=== PATIENT | male | born 1965 ===

== ENCOUNTER 2017-06-06 10:00 | Emergency (ER) | payer MEDICAID, OTHER ==
[2017-06-06 10:00] VITALS: BMI 22.1
[2017-06-06 10:11] VITALS: BP 122/98; RESP 18; TEMP 97.8; O2SAT 98
--- NOTE | 2017-06-06 10:43 | ED PDOC ---
HPI: Chest Pain Time Seen by Provider: 06/06/17 10:13 Chief Complaint (Nursing): Chest Pain Chief Complaint (Provider): Chest pain History Per: Patient History/Exam Limitations: no limitations Onset/Duration Of Symptoms: Hrs (prior to arrival ) Current Symptoms Are (Timing): Still Present Additional Complaint(s): Shawn Bernstein is a 52 year old male presenting to the ED for an evaluation of chest pain occurring prior to arrival. The patient admits to IV heroin use approximately 4 hours prior to arrival. He then developed chest pain prompting his ED visit today. The patient denies shortness of breath or any other drug use. PMD: None provided Past Medical History Reviewed: Historical Data, Nursing Documentation, Vital Signs Vital Signs: Last Vital Signs Temp 97.8 F 06/06/17 10:09 Pulse 75 06/06/17 10:46 Resp 18 06/06/17 10:09 BP 122/98 H 06/06/17 10:46 Pulse Ox 98 06/06/17 10:48 - Medical History PMH: Asthma Denies: Chronic Kidney Disease - Family History Family History: States: Unknown Family Hx - Social History Drugs: Other (heroin) - Immunization History Hx Tetanus Toxoid Vaccination: No Hx Influenza Vaccination: No Hx Pneumococcal Vaccination: No - Home Medications Home Medications: Ambulatory Orders Medication Instructions Recorded No Known Home Med 05/26/17 - Allergies Allergies/Adverse Reactions: Allergies Allergy/AdvReac Type Severity Reaction Status Date / Time Penicillins Allergy Verified 05/26/17 12:40 Review of Systems ROS Statement: Except As Marked, All Systems Reviewed And Found Negative Constitutional: Negative for: Other (no other drug use ) Cardiovascular: Positive for: Chest Pain Respiratory: Negative for: Shortness of Breath Physical Exam - Reviewed Nursing Documentation Reviewed: Yes Vital Signs Reviewed: Yes - Physical Exam Appears: Positive for: Non-toxic, No Acute Distress Head Exam: Positive for: ATRAUMATIC, NORMOCEPHALIC Skin: Positive for: Normal Color, Warm, Dry Eye Exam: Positive for: Normal appearance, EOMI ENT: Positive for: Normal ENT Inspection Neck: Positive for: Normal, Painless ROM Cardiovascular/Chest: Positive for: Regular Rate, Rhythm, Chest Non Tender Respiratory: Positive for: Normal Breath Sounds. Negative for: Respiratory Distress Gastrointestinal/Abdominal: Positive for: Normal Exam, Soft. Negative for: Tenderness Back: Positive for: Normal Inspection Extremity: Positive for: Normal ROM. Negative for: Deformity Neurologic/Psych: Positive for: Alert, Oriented (x3). Negative for: Motor/ Sensory Deficits - ECG O2 Sat by Pulse Oximetry: 98 (RA) Pulse Ox Interpretation: Normal Medical Decision Making Medical Decision Making: Time: 10:13 Impression: Chest pain s/p IV drug abuse Plan: * ED EKG * Alcohol Serum * Drug Screen, urine * Troponin I * CBC (with differential) * [RAD] Chest Portable * Reevaluation 10:46 Patient wishes to leave against medical advice. Patient advised of risks including cardiac arrythmia and possible . Patient advised not to do heroin anymore and discussed to follow up with [facility] or [facility]. Patient agreed to treatment plan. Scribe Attestation: Documented by Lorraine Schmidt, acting as a scribe for Ryan Vázquez MD. Provider Scribe Attestation: All medical record entries made by the Scribe were at my direction and personally dictated by me. I have reviewed the chart and agree that the record accurately reflects my personal performance of the history, physical exam, medical decision making, and the department course for this patient. I have also personally directed, reviewed, and agree with the discharge instructions and disposition. Disposition - Clinical Impression Clinical Impression: Chest pain, Narcotic abuse - Patient ED Disposition Is Patient to be Admitted: No - Disposition Referrals: [facility] [Outside] Disposition: Against Medical Advice Disposition Time: 10:50 Condition: FAIR Instructions: Chest Pain (ED), Narcotic Abuse (ED) Forms: [employer] (Swazi)
[2017-06-06 10:52] VITALS: PULSE 75
--- NOTE | 2017-06-06 12:41 | CARD ---
APPROVED REPORT EKG Measurement Heart [id number] SD 170P73 [id number] <Conclusion> Normal sinus rhythm with sinus arrhythmia Septal infarct, age undetermined Abnormal ECG
--- NOTE | 2017-06-06 14:49 | RAD ---
HISTORY: cough COMPARISON: No prior. FINDINGS: LUNGS: No active pulmonary disease. PLEURA: No significant pleural effusion identified, no pneumothorax apparent. CARDIOVASCULAR: Normal. OSSEOUS STRUCTURES: No significant abnormalities. VISUALIZED UPPER ABDOMEN: Normal. OTHER FINDINGS: None. IMPRESSION: No active disease.
== END 2017-06-06 11:00 | disposition home or self-care (01) ==
LOC: H.ER 10:00
DX: R07.89 Other chest pain (principal); F11.10 Opioid abuse, uncomplicated; J45.909 Unspecified asthma, uncomplicated; Z88.0 Allergy status to penicillin

== ENCOUNTER 2017-06-06 11:45 | Emergency (ER) | payer SELFPAY ==
[2017-06-06 11:45] VITALS: BMI 22.1
[2017-06-06 11:52] VITALS: TEMP 97.9
--- NOTE | 2017-06-06 12:38 | CARD ---
APPROVED REPORT EKG Measurement Heart [id number] CT 172P67 [id number] <Conclusion> Normal sinus rhythm Normal ECG
--- NOTE | 2017-06-06 12:51 | ED PDOC ---
HPI: Chest Pain Time Seen by Provider: 06/06/17 11:59 Chief Complaint (Nursing): Chest Pain Chief Complaint (Provider): Chest Pain History Per: Patient History/Exam Limitations: no limitations Onset/Duration Of Symptoms: Hrs (prior to arrival ) Current Symptoms Are (Timing): Still Present Additional Complaint(s): Shawn Bernstein is a 52 year old male presenting to the ED for an evaluation of chest pain occurring prior to arrival. The patient visited the ER 2 hours prior to arrival for the same symptoms occurring s/p IV heroin abuse and left against medical advice. The patient states he entered his car to go home and then developed chest pain again prompting his second ED visit today. PMD: None provided Past Medical History Reviewed: Historical Data, Nursing Documentation, Vital Signs Vital Signs: Last Vital Signs Temp 97.9 F 06/06/17 11:49 Pulse 75 06/06/17 15:05 Resp 14 06/06/17 15:05 BP 126/75 06/06/17 15:05 Pulse Ox 98 06/06/17 17:06 - Medical History PMH: Asthma Denies: Chronic Kidney Disease - Family History Family History: States: Unknown Family Hx - Social History Drugs: Other (heroin) - Immunization History Hx Tetanus Toxoid Vaccination: No Hx Influenza Vaccination: No Hx Pneumococcal Vaccination: No - Home Medications Home Medications: Ambulatory Orders Medication Instructions Recorded Ibuprofen [Motrin Tab] 800 mg PO TID #20 tab 06/07/17 - Allergies Allergies/Adverse Reactions: Allergies Allergy/AdvReac Type Severity Reaction Status Date / Time Penicillins Allergy Verified 06/07/17 13:33 Review of Systems ROS Statement: Except As Marked, All Systems Reviewed And Found Negative Constitutional: Negative for: Fever Cardiovascular: Positive for: Chest Pain Physical Exam - Reviewed Nursing Documentation Reviewed: Yes Vital Signs Reviewed: Yes - Physical Exam Appears: Positive for: Non-toxic, No Acute Distress Head Exam: Positive for: ATRAUMATIC, NORMOCEPHALIC Skin: Positive for: Normal Color, Warm, Dry Eye Exam: Positive for: Normal appearance, EOMI ENT: Positive for: Normal ENT Inspection Neck: Positive for: Normal, Painless ROM Cardiovascular/Chest: Positive for: Chest Non Tender, Other (Split S2 heard ) Respiratory: Positive for: Normal Breath Sounds. Negative for: Respiratory Distress Gastrointestinal/Abdominal: Positive for: Normal Exam, Soft. Negative for: Tenderness Back: Positive for: Normal Inspection Extremity: Positive for: Normal ROM. Negative for: Deformity Neurologic/Psych: Positive for: Alert, Oriented (x3). Negative for: Motor/ Sensory Deficits - Laboratory Results Result Diagrams: 06/06/17 13:20 06/06/17 13:20 - ECG O2 Sat by Pulse Oximetry: 98 (RA) Pulse Ox Interpretation: Normal Medical Decision Making Medical Decision Making: Time: 11:59 Impression: Chest Pain Plan: * ED EKG * CMP * Drug Screen, Urine * TSH * Troponin I * CBC (with differential) * D Dimer [COAG] * PTT * Prothrombin Time * Urinalysis * [RAD] Chest Portable * Reevaluation This patient is choosing to leave against medical advice. I have personally explained to the pt that choosing to do so may result in permanent bodily harm or . I have discussed at great length that without further evaluation and monitoring there may be unforeseen circumstances and/or deterioration causing permanent bodily harm or as a result of their choice. The pt verbalized these risks back to the physician in laymans terms. The pt is alert, oriented, and shows the mental capacity to make clear decisions regarding the pts health care at this time. The pt continues to wish to leave against medical advice. In light of the pts decision to leave AMA, follow-up has been arranged and the pt is aware of the importance of following up as instructed. The pt has been advised that they should return to the ED immediately if they change their mind at any time, or if their condition begins to change or worsen in any way. Scribe Attestation: Documented by Lorraine Schmidt and Tiffanie Mejía, acting as a scribe for Deisy Mccarty MD. Provider Scribe Attestation: All medical record entries made by the Scribe were at my direction and personally dictated by me. I have reviewed the chart and agree that the record accurately reflects my personal performance of the history, physical exam, medical decision making, and the department course for this patient. I have also personally directed, reviewed, and agree with the discharge instructions and disposition. Disposition - Clinical Impression Clinical Impression: Chest pain - Patient ED Disposition Is Patient to be Admitted: No - Disposition Referrals: FAMILY PROVIDER,NO [Primary Care Provider] - Disposition: Against Medical Advice Disposition Time: 16:25 Condition: UNKNOWN Forms: [facility] (Chadian) - POA Present On Arrival: None
[2017-06-06 13:38] LABS: BASO # 0.1 K/uL (0.0-0.2); BASO % 0.9 % (0.0-2.0); EOS # 0.5 K/uL (0.0-0.7); EOS % 3.2 % (0.0-4.0); HEMATOCRIT 45.8 % (35.0-51.0); LYMPH # 2.8 K/uL (1.0-4.3); LYMPH % 19.8 % (20.0-40.0); MEAN CELL VOLUME 88.3 fl (80.0-94.0); MEAN CORPUSCULAR HEMOGLOBIN 28.8 pg (27.0-31.0); MEAN CORPUSCULAR HGB CONC 32.7 g/dL (33.0-37.0); MEAN PLATELET VOLUME 7.7 fl (7.2-11.7); MONO # 0.6 K/uL (0.0-0.8); MONO % 4.3 % (0.0-10.0); NEUT # 10.2 K/uL (1.8-7.0); NEUT % 71.8 % (50.0-75.0); NRBC % 0.1 % (0.0-0.0); RED CELL DISTRIBUTION WIDTH 13.8 % (11.5-14.5); WHITE BLOOD COUNT 14.2 K/uL (4.8-10.8)
[2017-06-06 13:39] LABS: CHLORIDE 109 mmol/L (98-107)
[2017-06-06 14:11] LABS: THYROID STIMULATING HORMONE 0.96 mIU/ML (0.46-4.68)
[2017-06-06 14:37] LABS: ALB/GLOB RATIO 1.2 (1.0-2.1); ALKALINE PHOSPHATASE 110 U/L (38-126); ALT/SGPT 35 U/L (21-72); AST/SGOT 25 U/L (17-59); BILIRUBIN,TOTAL 0.3 mg/dl (0.2-1.3); BLOOD UREA NITROGEN 18 mg/dl (9-20); CALCIUM 9.3 mg/dL (8.4-10.2); CARBON DIOXIDE 23 mmol/L (22-30); GFR AFRICAN-AMERICAN > 60; GLUCOSE,RANDOM 101 mg/dL (75-110); POTASSIUM 4.2 MMOL/L (3.6-5.0); SODIUM 143 mmol/l (132-148)
[2017-06-06] MEDS ORDERED: Sodium Chloride 0.9% 100 ML ONE (15:45)
[2017-06-06] MEDS ORDERED: Iodixanol 320 MG/ML 100 ML BOTTLE IV ONE (15:45)
[2017-06-06 16:44] VITALS: PULSE 75
[2017-06-06 16:45] LABS: RBC URINE 1 /hpf (0-3); URINE BILIRUBIN NEGATIVE (NEGATIVE); URINE BLOOD MODERATE (NEGATIVE); URINE COLOR STRAW (YELLOW); URINE GLUCOSE (UA) NEG (Normal); URINE KETONE NEGATIVE (NEGATIVE); URINE LEUKOCYTE ESTERASE NEG Leu/uL (Negative); URINE PROTEIN NEGATIVE (NEGATIVE); URINE UROBILINOGEN 0.2-1.0 mg/dL (0.2-1.0); WBC URINE < 1 /hpf (0-5)
[2017-06-06 16:48] VITALS: BP 126/75; RESP 14
[2017-06-06 16:54] LABS: URINE BACTERIA RARE (<OCC)
[2017-06-06 17:07] VITALS: O2SAT 98
== END 2017-06-06 16:33 | disposition short-term general hospital (02) ==
LOC: H.ER 11:45 → SUPCPDRO 11:45 → H.ER 16:33
DX: R07.9 Chest pain, unspecified (principal); J45.909 Unspecified asthma, uncomplicated; Z88.0 Allergy status to penicillin
CPT/HCPCS: 80053; 81003; 84443; 84484; 85025; 85378; 85610; 85730; 93005; 99285; G0480; Q9967

== ENCOUNTER 2018-02-01 12:40 | Emergency (ER) | payer MEDICAID, OTHER ==
[2018-02-01 12:41] VITALS: BMI 23.4
[2018-02-01 12:44] VITALS: TEMP 98.3; O2SAT 98
--- NOTE | 2018-02-01 13:13 | ED PDOC ---
HPI: General Adult Time Seen by Provider: 02/01/18 13:11 Chief Complaint (Nursing): Seizure Chief Complaint (Provider): cocaine withdrawal History Per: Patient (52 y/o male here with vomiting/diarrhea after stopping cocaine 3 days ago. STates symptoms are typical for him after cocaine use. Feels as if he is improving and requests vegetarian meal.) Past Medical History Reviewed: Historical Data, Nursing Documentation, Vital Signs Vital Signs: Last Vital Signs Temp 98.3 F 02/01/18 12:44 Pulse 96 H 02/01/18 12:44 Resp 19 02/01/18 12:44 BP 142/85 02/01/18 12:44 Pulse Ox 98 02/01/18 13:26 - Medical History PMH: Asthma, HTN Denies: HIV, Chronic Kidney Disease, Seizures, Sexually Transmitted Disease - Family History Family History: States: Unknown Family Hx - Immunization History Hx Tetanus Toxoid Vaccination: No Hx Influenza Vaccination: No Hx Pneumococcal Vaccination: No - Home Medications Home Medications: Ambulatory Orders Medication Instructions Recorded Ondansetron ODT [Zofran ODT] 4 mg PO Q8 PRN #2 odt 02/01/18 - Allergies Allergies/Adverse Reactions: Allergies Allergy/AdvReac Type Severity Reaction Status Date / Time Penicillins Allergy SHORTNESS Verified 01/06/18 01:10 OF BREATH Review of Systems ROS Statement: Except As Marked, All Systems Reviewed And Found Negative Physical Exam - Reviewed Nursing Documentation Reviewed: Yes Vital Signs Reviewed: Yes - Physical Exam Appears: Positive for: Well, Non-toxic, No Acute Distress Head Exam: Positive for: ATRAUMATIC, NORMAL INSPECTION, NORMOCEPHALIC Skin: Positive for: Normal Color, Warm, DRY Eye Exam: Positive for: EOMI, Normal appearance, PERRL ENT: Positive for: Normal ENT Inspection Neck: Positive for: Normal, Painless ROM Cardiovascular/Chest: Positive for: Regular Rate, Rhythm Respiratory: Positive for: CNT, Normal Breath Sounds Gastrointestinal/Abdominal: Positive for: Normal Exam, Soft Back: Positive for: Normal Inspection Extremity: Positive for: Normal ROM Neurologic/Psych: Positive for: Alert, Oriented - ECG O2 Sat by Pulse Oximetry: 98 - Progress ED Course And Treament: zofran 4 mg odt Disposition - Clinical Impression Clinical Impression: Cocaine withdrawal - Patient ED Disposition Is Patient to be Admitted: No - Disposition Referrals: FAMILY PROVIDER,NO [Primary Care Provider] - Disposition: Routine/Home Disposition Time: 15:12 Condition: FAIR Prescriptions: Ondansetron ODT [Zofran ODT] 4 mg PO Q8 PRN #2 odt PRN Reason: Nausea/Vomiting Instructions: Cocaine Use Disorder Forms: [facility] [employer] [facility] (Wolof)
[2018-02-01 16:34] VITALS: BP 138/80; PULSE 90; RESP 18
== END 2018-02-01 16:34 | disposition home or self-care (01) ==
LOC: SUPCPDRO 12:40 → H.ER 12:40
DX: F14.23 Cocaine dependence with withdrawal (principal); I10 Essential (primary) hypertension; J45.909 Unspecified asthma, uncomplicated; R56.9 Unspecified convulsions; Z88.0 Allergy status to penicillin

== ENCOUNTER 2018-02-01 19:07 | Emergency (ER) | payer OTHER ==
[2018-02-01 19:07] VITALS: BMI 23.4
[2018-02-01 19:18] VITALS: BP 161/111; PULSE 117; RESP 18; TEMP 97.4; O2SAT 96
[2018-02-01 19:50] LABS: BASO # 0.1 K/uL (0.0-0.2); EOS # 0.1 K/uL (0.0-0.7); EOS % 1.7 % (0.0-4.0); HEMOGLOBIN 14.1 g/dL (12.0-18.0); LYMPH # 2.7 K/uL (1.0-4.3); LYMPH % 37.6 % (20.0-40.0); MEAN CORPUSCULAR HEMOGLOBIN 30.7 pg (27.0-31.0); MEAN CORPUSCULAR HGB CONC 34.1 g/dL (33.0-37.0); MEAN PLATELET VOLUME 7.3 fl (7.2-11.7); MONO # 0.4 K/uL (0.0-0.8); MONO % 5.5 % (0.0-10.0); NEUT # 3.9 K/uL (1.8-7.0); NEUT % 54.2 % (50.0-75.0); RBC 4.61 Mil/uL (4.40-5.90); RED CELL DISTRIBUTION WIDTH 14.6 % (11.5-14.5); WHITE BLOOD COUNT 7.2 K/uL (4.8-10.8)
[2018-02-01 20:15] LABS: PARTIAL THROMBOPLASTIN TIME 27.2 Seconds (25.6-37.1); PROTHROMBIN TIME 10.7 Seconds (9.8-13.1)
[2018-02-01 20:22] LABS: ALT/SGPT 39 U/L (21-72); AST/SGOT 73 U/L (17-59); BLOOD UREA NITROGEN 16 mg/dl (9-20); CALCIUM 8.4 mg/dL (8.4-10.2); GFR AFRICAN-AMERICAN > 60; GFR NON-AFRICAN AMERICAN > 60
[2018-02-01 20:23] LABS: ALB/GLOB RATIO 1.3 (1.0-2.1); ALBUMIN 4.1 g/dL (3.5-5.0)
--- NOTE | 2018-02-01 20:32 | ED PDOC ---
HPI: Chest Pain Time Seen by Provider: 02/01/18 19:24 Chief Complaint (Nursing): Chest Pain Chief Complaint (Provider): Chest pain History Per: Patient History/Exam Limitations: no limitations Additional History Per: Patient Additional Complaint(s): 52yo male, with known history of cocaine abuse, comes to ER with complaints of chest pain. Patient was evaluated in this ER earlier today and states he " wanted something to eat" and was in "withdrawals." At present, he denies any fever, chills, shortness of breath and offers no additional medical complaints. Past Medical History Reviewed: Historical Data, Nursing Documentation, Vital Signs Vital Signs: Last Vital Signs Temp 97.4 F L 02/01/18 19:13 Pulse 117 H 02/01/18 19:13 Resp 18 02/01/18 19:13 BP 161/111 H 02/01/18 19:13 Pulse Ox 96 02/01/18 20:33 - Medical History PMH: Asthma, HTN Denies: HIV, Chronic Kidney Disease, Seizures, Sexually Transmitted Disease - Surgical History Surgical History: No Surg Hx - Family History Family History: States: Unknown Family Hx - Social History Drugs: Cocaine - Immunization History Hx Tetanus Toxoid Vaccination: No Hx Influenza Vaccination: No Hx Pneumococcal Vaccination: No - Home Medications Home Medications: Ambulatory Orders Medication Instructions Recorded Ondansetron ODT [Zofran ODT] 4 mg PO Q8 PRN #2 odt 02/01/18 - Allergies Allergies/Adverse Reactions: Allergies Allergy/AdvReac Type Severity Reaction Status Date / Time Penicillins Allergy SHORTNESS Verified 01/06/18 01:10 OF BREATH Review of Systems ROS Statement: Except As Marked, All Systems Reviewed And Found Negative Constitutional: Negative for: Fever, Chills Cardiovascular: Positive for: Chest Pain Respiratory: Negative for: Shortness of Breath Physical Exam - Reviewed Nursing Documentation Reviewed: Yes Vital Signs Reviewed: Yes - Physical Exam Appears: Positive for: Non-toxic, No Acute Distress Head Exam: Positive for: ATRAUMATIC, NORMAL INSPECTION, NORMOCEPHALIC Skin: Positive for: Normal Color Eye Exam: Positive for: Normal appearance Neck: Positive for: Normal, Supple Cardiovascular/Chest: Positive for: Chest Non Tender, Tachycardia Respiratory: Positive for: Normal Breath Sounds Gastrointestinal/Abdominal: Positive for: Normal Exam, Soft. Negative for: Tenderness Extremity: Positive for: Normal ROM Neurologic/Psych: Positive for: Alert, Oriented. Negative for: Motor/Sensory Deficits - Laboratory Results Result Diagrams: 02/01/18 19:43 02/01/18 19:43 - ECG O2 Sat by Pulse Oximetry: 96 (RA) Pulse Ox Interpretation: Normal Medical Decision Making Medical Decision Making: Impression: Chest pain Plan: -- Labs -- EKG -- UDS -- Chest x-ray Time; 23:01 --Labs reviewed and reveal no clinically significant abnormalities with the exception of elevated blood alcohol levels. Earlier, patient demanded food. He denies chest pain at present time. Patient states he would like to be discharged. Diagnosis is alcohol dependence. Scribe Attestation: Documented by Felicia Ortiz, acting as a scribe for Lino Thompson MD. Provider Scribe Attestation: All medical record entries made by the Scribe were at my direction and personally dictated by me. I have reviewed the chart and agree that the record accurately reflects my personal performance of the history, physical exam, medical decision making, and the department course for this patient. I have also personally directed, reviewed, and agree with the discharge instructions and disposition. Disposition - Clinical Impression Clinical Impression: Alcohol dependence - Patient ED Disposition Is Patient to be Admitted: No - Disposition Disposition: Routine/Home Disposition Time: 23:01 Condition: STABLE Additional Instructions: DENNISE VILLARREAL, thank you for letting us take care of you today. Your provider was Lino Thompson MD and you were treated for CHEST PAIN. The emergency medical care you received today was directed at your acute symptoms. If you were prescribed any medication, please fill it and take as directed. It may take several days for your symptoms to resolve. Return to the Emergency Department if your symptoms worsen, do not improve, or if you have any other problems. Please contact your doctor or call one of the physicians/clinics you have been referred to that are listed on the Patient Visit Information form that is included in your discharge packet. Bring any paperwork you were given at discharge with you along with any medications you are taking to your follow up visit. Our treatment cannot replace ongoing medical care by a primary care provider outside of the emergency department. Thank you for allowing the [facility] team to be part of your care today. If you had an X-Ray or CT scan: A Radiologist will review the ED reading if any change in treatment is needed we will contact you. If you had a blood, urine, or wound culture: It will take several days for the results, if any change in treatment is needed we will contact you. If you had an STI test: It will take 48 hours for the results. Please call after 1 week if you have not heard back. Instructions: Alcohol Use - When Is Drinking a Problem? Forms: [employer] (Swazi)
--- NOTE | 2018-02-02 12:34 | CARD ---
APPROVED REPORT Date of service: 02/01/2018 EKG Measurement Heart [id number] ID [id number] <Conclusion> Normal sinus rhythm Normal ECG
== END 2018-02-01 22:58 | disposition home or self-care (01) ==
LOC: H.ER 19:07
DX: F10.20 Alcohol dependence, uncomplicated (principal); F14.11 Cocaine abuse, in remission; I10 Essential (primary) hypertension; J45.909 Unspecified asthma, uncomplicated; Z88.0 Allergy status to penicillin